=== PATIENT | male | born 1945 | race Asian ===

== ENCOUNTER 2022-09-02 14:24 | Emergency (ER) | payer MEDICARE, MEDICAID ==
[~2022-09-02] VITALS: Ht 170.2 cm; Wt 63.6 kg
[~2022-09-02 14:24] MED LIST: LOVA40TA2 PO; METF-1185 PO
[2022-09-02] MEDS ORDERED: METF-1211 PO (18:38)
[2022-09-02] MEDS ORDERED: DICL100G31 TP (18:38)
[2022-09-02] MEDS ORDERED: CETI10TA58 PO (18:38)
[2022-09-02] MEDS ORDERED: DONE-52 PO (18:38)
[2022-09-02] MEDS ORDERED: NEOM28OI31 TP (18:38)
[2022-09-02] MEDS ORDERED: SITA50 PO (18:38)
[2022-09-02] MEDS ORDERED: FINA5TAB41 PO (18:38)
[2022-09-02] MEDS ORDERED: MONT-40 PO (18:38)
[2022-09-02] MEDS ORDERED: SIMV10TA97 PO (18:38)
[2022-09-02] MEDS ORDERED: GABA-1181 PO (18:38)
[2022-09-02] MEDS ORDERED: LIDOCAINE 1% 10 ML VIAL PERC ONE (18:45)
[2022-09-02] MEDS ORDERED: NEOMYCIN/BACITRACIN/POLYMYXIN B OINTMENT PACKET TP ONE (19:15)
[2022-09-02] MEDS ORDERED: BACI28OI29 TP (19:39)
[2022-09-02 20:10] VITALS: BP 138/75
== END 2022-09-02 20:38 | disposition home or self-care (01) ==
LOC: EMS 14:30
DX: S60.551A Superficial foreign body of right hand, initial encounter (principal); E11.9 Type 2 diabetes mellitus without complications; W26.8XXA Contact with other sharp object(s), not elsewhere classified, initial encounter; W45.8XXA Other foreign body or object entering through skin, initial encounter; Y93.89 Activity, other specified; Y92.89 Other specified places as the place of occurrence of the external cause; Y99.8 Other external cause status
CPT/HCPCS: 99284; J3490